=== PATIENT | male | born 1970 | race Caucasian/White ===

== ENCOUNTER 2021-02-19 14:58 | Emergency (ER) | payer OTHER, SELFPAY ==
--- NOTE | 2021-02-19 15:06 | ED.EAR ---
HPI - Ear Problem General Chief complaint: Ear Stated complaint: Possible Ear infection Time Seen by Provider: 02/19/21 15:06 Source: patient and RN notes reviewed History of Present Illness HPI Narrative: Patient is a 50-year-old male who presents the urgent care with complaints of left ear pain for the last 2 months. Patient states he believes it is impacted due to the echoing from the left ear. Patient states that this happened 15 years ago and he had it cleaned out. Patient has not used anything [id number] for his symptoms. Denies currently of any pain or other upper respiratory symptoms. Denies any drainage from the ear. No other acute complaints. No acute distress noted. Patient had a plan of care. Some parts of this dictation were generated by voice recognition software and may contain typographical and/or grammatical inaccuracies. Related Data Allergies Allergy/AdvReac Type Severity Reaction Status Date / Time No Known Allergies Allergy Verified 02/19/21 15:16 Review of Systems Review of Systems: CONSTITUTIONAL: Denies fever, chills, or sweats. EYES: Denies visual changes, redness, or discharge. ENT: Denies rhinorrhea, congestion, sore throat. Reports of impacted cerumen to the left ear CARDIOVASCULAR: Denies chest pain, palpitations, or edema. RESPIRATORY: Denies cough or dyspnea. GASTROINTESTINAL: Denies abdominal pain, nausea, vomiting, or diarrhea. GENITOURINARY: Denies dysuria or hematuria. SKIN: Denies rash or itching. MUSCULOSKELETAL: Denies back pain, joint pain, or myalgia. NEUROLOGIC: Denies headache, numbness, or weakness. All other systems reviewed are negative, except as documented in HPI. PMFSH Comments At the time of my signature, I reviewed and agree with the nursing past medical, surgical, social, and family history. There is no relevant family history pertinent to the patient complaint. Exam Narrative: GENERAL: This is a well-nourished, well-developed patient, in no apparent distress. HEAD: normocephalic, atraumatic. EYES: PERRL. Sclera clear/white. Vision is grossly intact. EARS: External ears normal, auditory canals clear and without drainage, right TMs normal without perforation. Unable to visualize left TM due to cerumen impaction. Hearing grossly intact. NOSE: External nose normal with no obvious nasal discharge, nares without redness, no rhinorrhea. THROAT: Mucous membranes moist NECK: Neck supple CARDIOVASCULAR: Regular rate SKIN: warm, intact with no suspicious lesions or rash, good texture and turgor. NEURO: awake, alert, and oriented to person, place and time. There were no obvious focal neurologic abnormalities. EXTREMITIES: No clubbing, cyanosis, or edema. Course Vital Signs Vital signs: Vital Signs Temperature 97.9 F 02/19/21 15:07 Pulse Rate 63 02/19/21 15:07 Respiratory Rate 18 02/19/21 15:07 Blood Pressure 153/86 H 02/19/21 15:07 Pulse Oximetry 99 02/19/21 15:07 Temperature 97.9 F 02/19/21 15:07 Pulse Rate 63 02/19/21 15:07 Respiratory Rate 18 02/19/21 15:07 Blood Pressure 153/86 H 02/19/21 15:07 Pulse Oximetry 99 02/19/21 15:07 Reviewed-patient is informed that they may have pre-hypertension or hypertension based on a blood pressure reading in the department. I recommend the patient call the primary care provider listed on their discharge instructions or a physician of their choice this week to arrange follow-up for further evaluation of possible pre-hypertension or hypertension. Procedures Ear Wax Removal Left Ear: Cerumenolytic Used: other (50-50 peroxide and warm water) Results: Re-examined: some cerumen remains Patient Tolerated Procedure: well Complications: no problems Additional Comments: 50-50 peroxide and warm water with lighted curette used to irrigate the left ear due to cerumen impaction. Patient tolerated well. Some cerumen still remains. Unable to visualize TM. Medical Decision Ma
[2021-02-19 15:07] VITALS: BP 153/86; PULSE 63; RESP 18; TEMP 36.6; O2SAT 99
== END 2021-02-19 16:30 | disposition home or self-care (01) ==
PROVIDERS: Emergency Provider Nurse Practitioner Family; PCP Hospitalist
DX: H61.22 Impacted cerumen, left ear (principal)
CPT/HCPCS: 69209; 99213; G0463